=== PATIENT | female | born 1940 | race Two or more races ===

== ENCOUNTER 2016-08-06 11:32 | Inpatient (IN) | payer MEDICAID, MEDICARE ==
[~2016-08-06] VITALS: Ht 149.9 cm; Wt 54.4 kg
--- NOTE | 2016-08-06 11:40 | NUR ---
PT BIB [facility] FROM [facility]D C/O NAUSEA AND ELEVATED BP X 3 DAYS. PLACED ON MONITOR. VSS. AWAITING MD ORDER
--- NOTE | 2016-08-06 12:06 | NUR ---
AT BEDSIDE FOR EVAL
[2016-08-06 12:29] LABS: BASOPHILS # (AUTO) 0.4 /CMM (0.0-0.2); BASOPHILS % (AUTO) 3.7 % (0.0-2.0); EOSINOPHILS % (AUTO) 0.3 % (0.0-6.0); HEMATOCRIT 38 % (33-45); HEMOGLOBIN 12.8 g/dL (11.5-14.8); LYMPHOCYTES # (AUTO) 2.3 /CMM (0.8-4.8); LYMPHOCYTES % (AUTO) 21.2 % (20.0-44.0); MEAN CORPUSCULAR HEMOGLOBIN 28 PG (26.0-33.0); MEAN CORPUSCULAR HGB CONC 34 g/dl (31.0-36.0); MEAN CORPUSCULAR VOLUME 82 fL (82-100); MONOCYTES # (AUTO) 0.7 /CMM (0.1-1.30); MONOCYTES % (AUTO) 6.2 % (2.0-12.0); NEUTROPHILS # (AUTO) 7.5 /CMM (1.8-8.9); NEUTROPHILS % (AUTO) 68.6 % (43.0-81.0); PLATELET COUNT (AUTO) 267 /CMM (150-450); RDW COEFFICIENT OF VARIATION 13.9 (11.5-15.0); WHITE BLOOD COUNT (AUTO) 10.9 K/uL (4.3-11.0)
[2016-08-06] MEDS ORDERED: ONDANSETRON HCL/PF 4 MG/2 ML VIAL IVP ONE (12:30)
[2016-08-06] MEDS ORDERED: ASPIRIN 325 MG TABLET PO ONE (12:30)
[2016-08-06] MEDS ORDERED: IV NS 0.9% 1,000 ML BAG IV ONE (12:30)
--- NOTE | 2016-08-06 12:30 | NUR ---
CONSUELO #20 IV ACCESS BLOOD SAMPLE COLLECTED SENT TO LAB
--- NOTE | 2016-08-06 12:30 | NUR ---
XRAY AT BEDSIDE
[2016-08-06 12:39] LABS: CALCIUM, SERUM 9.6 mg/dL (8.5-10.1); CARBON DIOXIDE 24 mmol/L (21-32); CHLORIDE 99 mmol/L (98-107); CREATININE 0.8 mg/dL (0.6-1.3); GLUCOSE 125 mg/dL (74-106); SODIUM SERUM 135 mmol/L (136-145); UREA NITROGEN, BLOOD 10 mg/dL (7-18)
[2016-08-06] MEDS ORDERED: ONDANSETRON HCL/PF 4 MG/2 ML VIAL ONE (12:41)
[2016-08-06] MEDS ORDERED: IV SET PRIMARY PUMP SET 1 EA INFUS.SET MC ONE (12:41)
[2016-08-06] MEDS ORDERED: IV NS 0.9% 1,000 ML ONE (12:41)
[2016-08-06] MEDS ORDERED: ASPIRIN EC 81 MG TABLET.DR PO ONE (12:41)
[2016-08-06 12:44] LABS: ALANINE AMINOTRANSFERASE 17 U/L (12-78); ALBUMIN 3.8 g/dL (3.4-5.0); ALKALINE PHOSPHATASE 84 U/L (46-116); ASPARTATE AMINOTRANSFERASE 14 U/L (15-37); BILIRUBIN,DIRECT 0.1 mg/dL (0.0-0.2); BILIRUBIN,TOTAL 0.2 mg/dL (0.2-1.0); TOTAL PROTEIN, SERUM 7.4 g/dL (6.4-8.2)
[2016-08-06 12:45] LABS: INR 0.94 (0.87-1.13); PROTHROMBIN TIME 9.8 SECS (9.5-12.7)
[2016-08-06 12:48] LABS: TROPONIN I < 0.017 ng/mL (0.00-0.056)
--- NOTE | 2016-08-06 13:05 | NUR ---
CALLED NURSING SUP. FOR TELE BED
--- NOTE | 2016-08-06 13:12 | NUR ---
URINE SAMPLE COLLECTED SENT TO LAB
[2016-08-06 13:18] LABS: APPEARANCE,URINE Clear (CLEAR); BILIRUBIN,URINE Negative (NEGATIVE); BLOOD, URINE Negative Ery/uL (NEGATIVE); COLOR,URINE Yellow (YELLOW); KETONES,URINE Negative (NEGATIVE); LEUKOCYTE ESTERASE ,URINE Trace (NEGATIVE); NITRITE, URINE Negative (NEGATIVE); PROTEIN,URINE Negative (NEGATIVE); UGLUCOSE Negative (NEGATIVE); UROBILINOGEN,URINE 0.2 EU/dL (0.2)
[2016-08-06] MEDS ORDERED: CILO100T PO (13:24)
[2016-08-06] MEDS ORDERED: PANT40TA4 PO (13:24)
[2016-08-06] MEDS ORDERED: CHOL100044 PO (13:24)
[2016-08-06] MEDS ORDERED: BISA-79 PO (13:24)
[2016-08-06] MEDS ORDERED: ISOS120T9 PO (13:24)
[2016-08-06] MEDS ORDERED: METF500T7 PO (13:24)
[2016-08-06] MEDS ORDERED: METO25TA3 PO (13:24)
[2016-08-06] MEDS ORDERED: ASPI-991 PO (13:24)
[2016-08-06] MEDS ORDERED: NITR0.4T6 SL (13:24)
[2016-08-06] MEDS ORDERED: SENN8.6T6 PO (13:24)
[2016-08-06] MEDS ORDERED: BENA40TA2 PO (13:24)
[2016-08-06] MEDS ORDERED: MEMA5TAB PO (13:24)
[2016-08-06] MEDS ORDERED: DULO60CA45 PO (13:24)
[2016-08-06] MEDS ORDERED: PRAV20TA4 PO (13:24)
[2016-08-06] MEDS ORDERED: GLIM2TAB2 PO (13:24)
[2016-08-06] MEDS ORDERED: METOCLOPRAMIDE HCL 10 MG/2 ML VIAL ONE (13:36)
--- NOTE | 2016-08-06 13:37 | NUR ---
Report given to charmaine Kendall tele [phone] andre attending
[2016-08-06 13:39] LABS: RBC,URINE 0-2 /HPF (0-2)
[2016-08-06 13:40] LABS: ADD URINE CULTURE NO; BACTERIA,URINE Rare /HPF (None Seen); SQUAMOUS EPITHELIAL CELL,UR Moderate /HPF (None Seen)
[2016-08-06] MEDS ORDERED: IV NS 0.9% 250 ML IV ONE (13:40)
[2016-08-06] MEDS ORDERED: CT SWABBABLE VALVE TRANS SET 1 EA INFUS.SET MC ONE (13:41)
[2016-08-06] MEDS ORDERED: IOHEXOL-350 100 ML VIAL IV ONE (13:41)
--- NOTE | 2016-08-06 13:57 | NUR ---
PT WAS TAKEN TO CT FOR CT ANGIO
[2016-08-06] MEDS ORDERED: METOCLOPRAMIDE HCL 10 MG/2 ML VIAL IV ONE (14:00)
--- NOTE | 2016-08-06 14:04 | NUR ---
PT TAKEN VIA GURNEY TO CT SCAN
--- NOTE | 2016-08-06 15:45 | NUR ---
CALLED MARIA ISABEL TO READ CT
--- NOTE | 2016-08-06 17:13 | NUR ---
CALLED [phone], LEFT MESSAGE ON VOICEMAIL
--- NOTE | 2016-08-06 18:00 | NUR ---
PT ADMITTED FROM ER IN STABLE CONDITION, NO SOB OR DISTRESS NOTED, NO PAIN OR DISCOMFORT, TRANSFERRED TO BED SAFELY, FAMILY AT BEDSIDE, WILL PAGE
[2016-08-06 18:05] VITALS: BP 125/78
--- NOTE | 2016-08-06 18:15 | NUR ---
LEFT MESSAGE FOR DR. MINER
--- NOTE | 2016-08-06 18:45 | NUR ---
DR COOMBS CALLED [facility], NEW ORDERS RECEIVED.
[2016-08-06] MEDS ORDERED: ONDANSETRON HCL/PF 4 MG/2 ML VIAL IV PRN (19:00)
[2016-08-06] MEDS ORDERED: *INSULIN REGULAR(HUMULIN R)HUM 100 UNIT/ML VIAL SQ PRN (19:00)
[2016-08-06] MEDS ORDERED: ZOLPIDEM TARTRATE 10 MG TABLET PO PRN (19:00)
[2016-08-06] MEDS ORDERED: DEXTROSE 50%-WATER 50 ML DISP.SYRIN IV PRN (19:00)
[2016-08-06] MEDS ORDERED: CLONIDINE HCL 0.1 MG TABLET PO PRN (19:00)
[2016-08-06] MEDS ORDERED: LORAZEPAM 0.5 MG TABLET PO PRN (19:00)
[2016-08-06 19:15] LABS: MAGNESIUM 1.7 mg/dL (1.8-2.4)
[2016-08-06] MEDS ORDERED: NITROGLYCERIN 0.4 MG/TAB BOTTLE SL PRN (19:30)
--- NOTE | 2016-08-06 19:30 | NUR ---
RN NOTE; RECEIVED PT SITTING AT THE EDGE OF THE BED W/ FAMILY AT THE BED SIDE. BREATHING EVENLY. NO SOB. NO DISTRESS. SKIN WARM AND DRY. NO C/O HEADACHE AT THIS TIME. NO FACIAL DROOP. STILL W/ NAUSEA NO VOMITING. NEEDS ATTENDED. CALL LIGHT WITHIN REACH. WILL CONT TO MONITOR,
[2016-08-06 19:37] LABS: C-REACTIVE PROTEIN 0.5 mg/dL (0.0-0.9); THYROID STIMULATING HORMONE 0.872 uIU/mL (0.358-3.74)
[2016-08-06 20:00] VITALS: BP 131/65
--- NOTE | 2016-08-06 20:16 | NUR ---
zofran given as ordered for c/o nausea. no episode of vomiting. will cont to monitor
[2016-08-06] MEDS: BLOOD SUGAR DIAGNOSTIC 1 EACH STRIP VI SCH (21:51)
[2016-08-06] MEDS: BENAZEPRIL HCL 20 MG TABLET PO SCH (21:51)
[2016-08-06] MEDS ORDERED: ZOLPIDEM TARTRATE 5 MG TABLET PO PRN (22:00)
[2016-08-07] VITALS (7 sets, daily range): BP systolic 113–137; BP diastolic 52–66
--- NOTE | 2016-08-07 01:21 | NUR ---
Ambien given as ordered for inability to sleep. will cont to monitor
[2016-08-07] MEDS: INSULIN REGULAR, HUMAN 100 UNIT/ML 3 ML VIAL SQ PRN ×2 (06:42→13:13)
[2016-08-07] MEDS: BLOOD SUGAR DIAGNOSTIC 1 EACH STRIP VI SCH ×3 (06:42→17:55)
--- NOTE | 2016-08-07 06:47 | NUR ---
RN NOTE; PT IN BED SLEEPING W/ FAMILY AT THE BED SIDE. BREATHING EVENLY. NO SOB. NAD. NO ACUTE CHANGES DURING THE NIGHT, NO C/O PAIN OR DISCOMFORT . NO EPISODE OF HYPO OR HYPERGLYCEMIA. NO CHANGE IN MENTAL STATUS. NO NEURO CHANGES. NO C/O HEADACHE. NO N/V. HEART MONITOR IN PLACE READING SR/ ST. NEEDS ATTENDED. ASSISTED W/ ADLS. CALL LIGHT WITHIN REACH. WILL CONT TO MONITOR AND WILL ENDORSE TO AM SHIFT FOR SEA.
[2016-08-07] MEDS ORDERED: PANTOPRAZOLE 40 MG TABLET.DR PO SCH (07:30)
[2016-08-07] MEDS: METFORMIN XR 500 MG TAB.SR.24H PO SCH ×2 (08:53→16:45)
[2016-08-07] MEDS: CILOSTAZOL 100 MG TABLET PO SCH ×2 (08:53→16:45)
[2016-08-07] MEDS: BENAZEPRIL HCL 20 MG TABLET PO SCH (08:54)
[2016-08-07] MEDS ORDERED: DULOXETINE HCL 30 MG CAPSULE.DR PO SCH (09:00)
[2016-08-07] MEDS ORDERED: ATORVASTATIN 10 MG TABLET PO SCH (09:00)
[2016-08-07] MEDS ORDERED: ISOSORBIDE MONONITRATE (30MG) 30 MG TAB.SR.24H PO SCH (09:00)
[2016-08-07] MEDS ORDERED: NIFEdipine XL (30MG) 30 MG TAB PO SCH (09:00)
[2016-08-07] MEDS ORDERED: METOPROLOL SUCCINATE 25 MG TAB.SR.24H PO SCH (09:00)
[2016-08-07] MEDS ORDERED: MEMANTINE HCL 5 MG TABLET PO SCH (09:00)
[2016-08-07] MEDS ORDERED: SENNOSIDES 8.6 MG TABLET PO SCH (09:00)
[2016-08-07] MEDS ORDERED: ASPIRIN EC 81 MG TABLET.DR PO SCH (09:00)
[2016-08-07] MEDS ORDERED: BISACODYL (5 MG) 5 MG TABLET.DR PO SCH (09:00)
[2016-08-07] MEDS: GLIMEPIRIDE 1 MG TABLET PO SCH ×2 (09:21→16:46)
[2016-08-07 11:50] LABS: BASOPHILS % (AUTO) 0.4 % (0.0-2.0); EOSINOPHILS % (AUTO) 0.3 % (0.0-6.0); HEMATOCRIT 36 % (33-45); HEMOGLOBIN 11.9 g/dL (11.5-14.8); LYMPHOCYTES # (AUTO) 2.6 /CMM (0.8-4.8); LYMPHOCYTES % (AUTO) 29.5 % (20.0-44.0); MEAN CORPUSCULAR HEMOGLOBIN 28 PG (26.0-33.0); MEAN CORPUSCULAR HGB CONC 33 g/dl (31.0-36.0); MEAN CORPUSCULAR VOLUME 83 fL (82-100); MONOCYTES # (AUTO) 0.6 /CMM (0.1-1.30); MONOCYTES % (AUTO) 6.5 % (2.0-12.0); NEUTROPHILS # (AUTO) 5.5 /CMM (1.8-8.9); NEUTROPHILS % (AUTO) 63.3 % (43.0-81.0); PLATELET COUNT (AUTO) 278 /CMM (150-450); RDW COEFFICIENT OF VARIATION 14.5 (11.5-15.0); RED BLOOD CELL COUNT(AUTO) 4.32 MIL/uL (4.0-5.2); WHITE BLOOD COUNT (AUTO) 8.7 K/uL (4.3-11.0)
[2016-08-07 12:07] LABS: ALBUMIN 3.7 g/dL (3.4-5.0); BILIRUBIN,TOTAL 0.3 mg/dL (0.2-1.0); CALCIUM, SERUM 8.8 mg/dL (8.5-10.1); CREATININE 0.8 mg/dL (0.6-1.3); POTASSIUM 4.1 mmol/L (3.5-5.1); TOTAL PROTEIN, SERUM 7.2 g/dL (6.4-8.2)
[2016-08-07] MEDS ORDERED: hydrALAZINE HCL 25 MG TABLET PO PRN (14:00)
[2016-08-07 15:08] LABS: TROPONIN I < 0.017 ng/mL (0.00-0.056)
[2016-08-07 15:46] LABS: B-TYPE NATRIURETIC PEPTIDE 60 PG/ML (0-125)
--- NOTE | 2016-08-07 19:00 | NUR ---
RN NOTES WITH DC HOME ORDER. DISCHARGE INSTRUCTION GIVEN ON HOME MEDICATION AND FOLLOW UP WITH DR MINER IN 1 WEEK VERBALIZED UNDERSTANDING. DISCHARGE PAPER GIVEN TO PATIENT AND DAUGHTER. BELONGINGS WERE ACCOUNTED FOR AND CLAIMED NO ITEMS MISSING. IV ACCESS ON RIGHT AC AND LEFT FOREARM REMOVED AND SECURED SITE WITH DRESSING. LEFT HOSPITAL IN STABLE CONDITION ACCOMPANIED BY DAUGHTER VIA WHEELCHAIR. PATIENT THANKFUL OF THE CARE.
[2016-08-08] MEDS ORDERED: ASPIRIN EC 81 MG TABLET.DR PO SCH (09:00)
[2016-08-08] MEDS ORDERED: BENAZEPRIL HCL 20 MG TABLET PO SCH (09:00)
== END 2016-08-07 20:45 | disposition home or self-care (01) | DRG 199 ==
LOC: ER 11:34 → TELE 13:47 → MED 08-07 16:53
PROVIDERS: ADMIT Internal Medicine; ATTEND Family Medicine
DX: I16.0 Hypertensive urgency (principal); E11.65 Type 2 diabetes mellitus with hyperglycemia; R06.00 Dyspnea, unspecified; F03.90 Unspecified dementia, unspecified severity, without behavioral disturbance, psychotic disturbance, mood disturbance, and anxiety; I50.9 Heart failure, unspecified; I11.0 Hypertensive heart disease with heart failure; D63.8 Anemia in other chronic diseases classified elsewhere; E83.42 Hypomagnesemia; E78.5 Hyperlipidemia, unspecified; F17.210 Nicotine dependence, cigarettes, uncomplicated; M16.0 Bilateral primary osteoarthritis of hip; M17.0 Bilateral primary osteoarthritis of knee; M81.0 Age-related osteoporosis without current pathological fracture; Z86.73 Personal history of transient ischemic attack (TIA), and cerebral infarction without residual deficits; G47.30 Sleep apnea, unspecified; R32 Unspecified urinary incontinence; Z91.14 Patient's other noncompliance with medication regimen; R11.2 Nausea with vomiting, unspecified; K59.00 Constipation, unspecified; I25.119 Atherosclerotic heart disease of native coronary artery with unspecified angina pectoris; R00.0 Tachycardia, unspecified; Z79.84 Long term (current) use of oral hypoglycemic drugs
CPT/HCPCS: 36415; 70450-TC; 71010-TC; 72040-TC; 72070-TC; 72080-TC; 73564-TC; 80048-TC; 80053-TC; 80076-TC; 81000-TC; 82962-TC; 83540-TC; 83735-TC; 83880; 84443-TC; 84484-TC; 85025-TC; 85652-TC; 85730-TC; 86140-TC; 87081-TC; 93307-TC; 97001-TC; 97003-TC; A4606; J1815; J2405; J2765; J7030; J7050; Q9967; Z7610